=== PATIENT | male | born 1970 | race Caucasian/White ===

== ENCOUNTER 2023-11-09 12:31 | Emergency (ER) | payer SELFPAY ==
[2023-11-09 12:31] VITALS: BP 101/77; PULSE 77; RESP 14; TEMP 36.1; O2SAT 98; BMI 20.4
--- NOTE | 2023-11-09 13:00 | RAD_ITS ---
STUDY: X-RAY - LEFT ELBOW REASON FOR EXAM: Male, 53 years old. Left elbow pain TECHNIQUE: 3 view(s) of the elbow. COMPARISON: None. FINDINGS: Normal visualized humerus, radius and ulna. Normal radiocapitellar and ulnotrochlear articulations. The soft tissue structures are unremarkable. RAD/Elbow min 3 Views IMPRESSION: Normal x-ray examination of the elbow. Electronically Signed: Karan Gallardo MD ([place]) at 13:36 EDT ,
--- NOTE | 2023-11-09 13:00 | EX.ED.UPPERE ---
HPI History of Present Illness Chief Complaint: Upper Extremity Injury Narrative Narrative: 53-year-old male, who denies significant past medical history, [id number], presents with 2 weeks of left elbow pain. He relates history that remotely he had a dog bite to his left hand. His hand had been swollen for quite some time, but he took antibiotics, and it resolved. He states that there are times when he has pain in his left elbow and it feels like someone took their knee against it, and broke it. He denies any recent trauma, no fevers or chills, no redness to the area. At times it radiates down his forearm as well. He states he went back to the [facility] clinic and was told that he needed to come to the emergency department to get an MRI of his left elbow. Pain is sometimes worse with movement. No distinctive exacerbating or alleviating factors. PFSH PFS Medical History no medical history Home Medications ?Medication ?Instructions ?Recorded ?Last Taken ?Type clindamycin HCl 300 mg capsule 300 mg PO Q6H ##80 06/13/14 Unknown Rx (Cleocin HCl) Allergy/AdvReac Type Severity Reaction Status Date / Time No Known Allergies Allergy Verified 11/09/23 12:33 Family History no significant family his Surgical History no surgical history Social History Smoking Status: Current every day smoker tobacco type: cigarettes ROS ROS ED ROS Narrative Constitutional: No fever, no chills. HEENT: No sore throat. No neck pain. No loss of vision. No rhinorrhea. Cardiovascular: No chest pain. No palpitations. No pedal edema. Respiratory: No cough, no shortness of breath. Abdominal: No abdominal pain. No nausea. No vomiting. Genitourinary: No dysuria. No hematuria. Musculoskeletal: No myalgias. Positive left elbow pain. Neurologic: No headaches. No dizziness. No lightheadedness. Skin: No rash. No change in color. Psychiatric: No depression. No anxiety. EXAM Physical Exam Narrative Exam Narrative: Afebrile. Vital signs noted. Regular rate and rhythm. Lungs clear to auscultation bilaterally. Abdomen soft nontender with normoactive bowel sounds. Neurological examination shows him awake, alert, and oriented. Inspection of the left elbow reveals no evidence of acute swelling, no olecranon tenderness or swelling. Palpable radial pulse, left. Able to oppose thumb, good capillary refill fingers. Full range of motion of left wrist. Mild tenderness to palpation along radial nerve at the elbow. Const Vital Signs: 11/09/23 12:31 Temperature 96.9 F L Temperature Source Temporal Pulse Rate 77 Respiratory Rate 14 Blood Pressure 101/77 Blood Pressure Mean 85 Pulse Ox 98 Oxygen Delivery Method Room Air MDM MDM MDM Narrative Medical decision making narrative: In the differential diagnosis is radial nerve entrapment versus tendinitis versus peripheral nerve neuropathy. X-rays will be obtained to rule out fracture or degenerative changes of the left elbow. I had a lengthy discussion with patient. I do not feel he needs an emergent MRI, and additionally it is unavailable during the weekend. I feel he can follow-up with orthopedics, and have further workup as an outpatient. X-rays interpreted by myself independently shows no evidence of acute fracture, no dislocation. I reviewed the radiology report which confirms my independent interpretation. At this point in time, I wrote him a Medrol Dosepak to take for anti-inflammatory properties. He may have more of an impingement type syndrome of the nerve in his left elbow. He was referred to orthopedics. Return instructions to the emergency department were reviewed. Disposition is discharged home in stable condition. History & Record Review Discussion w/independent historian: Patient Discharge Plan Triage Chief Complaint: Upper Extremity Injury ED Provider: Scott Bonilla Dx/Rx/DC Orders Clinical Impression: Left elbow pain Instructions: ED Arthralgia, ED Pain, Acute, Uncertain Cause Prescriptions: No Action clindamycin HCl [Cleocin HCl] 300 MG capsule 300 mg PO Q6H Qty: 80 0RF Primary Care Provider: Care Physician,No Primary Referrals: Cleveland Escobar DO [Med Staff - Active Staff] - 1 Week if not improving Care Physician,No Primary [Primary Care Provider] - Print Language: Kinyarwanda Disposition Disposition: Home, Self Care
[2023-11-09 14:02] VITALS: BP 110/78; PULSE 75; RESP 18; TEMP 37; O2SAT 97
== END 2023-11-09 14:03 | disposition home or self-care (01) ==
PROVIDERS: Emergency Provider Emergency Medicine; Visit Provider Emergency Medicine
DX: M25.522 Pain in left elbow (principal); F17.210 Nicotine dependence, cigarettes, uncomplicated
CPT/HCPCS: 73080; 99282

== ENCOUNTER 2025-02-26 09:50 | Emergency (ER) | payer OTHER, SELFPAY ==
[2025-02-26 09:50] VITALS: BP 127/77; PULSE 63; RESP 14; TEMP 36.2; O2SAT 98; BMI 21.6
[2025-02-26] MEDS: 0.9% Normal Saline (1000mL) 1,000 ML 1000 ML IV (10:31)
--- NOTE | 2025-02-26 10:35 | CT_ITS ---
PROCEDURE: CTA HEAD AND NECK W/ CONTRAST 02/26/2025 REASON FOR EXAM: RECENT HEAD INJURY, HEADACHE, RADICULOPATHY TECHNIQUE: Procedure Code: CTCTA.HDNCK Modality: CT Procedure: CTA HEAD AND NECK W/ CONTRAST Multiplanar Sagittal and Coronal images were obtained. 3D post processing was performed CONTRAST: Isovue 370 VOLUME: 100 mL One or more dose reduction techniques were used (e.g., Automated exposure control, adjustment of the mA and/or kV according to patient size, use of iterative reconstruction technique). RADIATION DOSE SUMMARY: CTDlvol: 20.5 mGy DLP: 724.57 mGycm COMPARISON: Prior CT scan of the brain done earlier in the day. FINDINGS: Aortic Arch: Normal size and branching pattern. No significant atherosclerotic plaque. Brachiocephalic and Subclavians: Unremarkable RIGHT Carotid: Right CCA: Unremarkable. Right ICA: Unremarkable. Right ECA: Unremarkable. LEFT Carotid: Left CCA: Unremarkable. Left ICA: Unremarkable. Left ECA: Unremarkable. Vertebrals: Codominant. Arise from the subclavians. Both vertebrals form the basilar. RIGHT Vertebral: Unremarkable. LEFT Vertebral: Unremarkable. Anatomy: [place] anatomy is normal. Aneurysm or avm: No intracranial aneurysms or large vascular malformations are identified. Anterior cerebral arteries: Unremarkable: Middle cerebral arteries: Unremarkable. Basilar artery: Unremarkable. Posterior cerebral arteries: Unremarkable. Other major branches of the posterior circulation: Unremarkable. Major venous structures: Unremarkable. Other findings: Neck: Lungs: Bones: CT/CTA Head AND Neck W/ Contrast IMPRESSION: Unremarkable examination. Reading Location: [place] [id number]
--- NOTE | 2025-02-26 10:35 | CT_ITS ---
PROCEDURE: BRAIN/HEAD WITHOUT CONTRAST 02/26/2025 REASON FOR EXAM: HEADACHE, CONCUSSION, RECENT INJURY TECHNIQUE: Procedure Code: CTBR Modality: CT Procedure: BRAIN/HEAD WITHOUT CONTRAST Coronal and Sagittal reconstruction series were provided. One or more dose reduction techniques were used (e.g., Automated exposure control, adjustment of the mA and/or kV according to patient size, use of iterative reconstruction technique. RADIATION DOSE SUMMARY: CTDlvol: 44.99 mGy DLP: 796.11 mGycm COMPARISON: None FINDINGS: Brain: Within normal limits for age CSF Spaces: Normal Sinuses/Mastoids: Partial opacification of the left frontal sinus. Mucosal thickening of the ethmoid sinuses. Partial opacification of the inferior aspect of the left maxillary sinus. Bones: No fracture seen. CT/Brain/Head without Contrast IMPRESSION: NORMAL NONCONTRAST HEAD CT. Sinusitis as described. Reading Location: [place] [id number]
--- NOTE | 2025-02-26 10:59 | EDS_ITS ---
HPI History of Present Illness Chief Complaint: Headache Narrative Narrative: Chief complaint and HPI: 55-year-old male presents from occupational health for evaluation of concussion and neck pain with intermittent left upper extremity radiculopathy. History taken by patient as well as outpatient ED note-patient had paperwork on him. Patient is a 55-year-old gentleman who presented to the ER on 01/14/2025 after a work-related head injury with LOC. He struck his head off of a car left. Since the incidents he has been having head pain and concussion-like symptoms as well as neck pain and periodically left upper extremity radiculopathy. He is not on blood thinners. In the ER on initial presentation he had a CT of the head without contrast as well as CT spine without contrast. CT head was unremarkable. CT of the cervical spine showed disc osteophyte complex at C3-4 with consequent mild ventral bony canal effacement and mild bilateral bony foraminal stenosis. Similar findings but slightly milder at C5 and 6. Similar findings are slightly more stenotic bilateral bony foramina at C6-7. He had an x-ray of the left shoulder that was unremarkable for traumatic injury. Patient states he was ultimately discharged home on prednisone taper with follow-up with occupational health patient was seen in occupational health today due to his continuing headaches, concussion type symptoms, neck pain, intermittent radiculopathy of the left upper extremity. Sent to the ED for further evaluation. Patient states since the incident he has been having brain fogginess, intermittent forgetfulness, headaches, left neck pain, and intermittent left upper extremity radiculopathy. States he is currently not working due to the symptoms. Review of systems: See HPI Medications: As listed on the chart Allergies: As listed on the chart PFSH: Per chart Vital signs: As listed on the chart. Reviewed. Physical exam: Gen: A&O x3, NAD Head: Normocephalic, atraumatic Eyes: No sclera icterus, conjunctiva clear, PERRL, EOMI ENT: TMs clear BL, moist mucous membranes, face atraumatic without tenderness Neck: Trachea midline, no midline spinal tenderness, no bony step-offs, mild tenderness to palpation of the paraspinal musculature of the bilateral cervical spine into the superior bilateral trapezius muscles-no external signs of trauma CV: RRR, no murmurs, no chest wall TTP Resp: Lungs CTA BL, no w/r/c Musc: Full ROM, no deformity, strength +5/5 in bilateral upper extremities except for him specialist strength is +4 on the left-patient is right handed, radial pulse +2, good capillary refill the bilateral upper extremities, sensation intact, no midline spinal TTP, no reta step-offs Skin: Warm, dry Neuro: Alert, oriented, grossly intact, sensation intact in bilateral upper extremity Psych: Cooperative, appropriate mood and affect PFSH [facility] Medical History (Updated 02/26/25 @ 12:[address] Melchor Salgado, DO) Concussion Home Medications Medication Instructions Recorded Last Taken Type clindamycin HCl 300 mg capsule 300 mg PO Q6H ##80 03/0 04/29 Unknown Rx (Cleocin HCl) methylprednisolone 4 mg tablets in See Rx Instructions PO .COMPLEX 11/09/23 Unknown Rx a dose pack (Medrol (Pavel)) #21 tabs Allergy/AdvReac Type Severity Reaction Status Date / Time No Known Allergies Allergy Verified 02/26/25 09:52 Family History no significant family his Social History (Updated 02/26/25 @ 10:12 by Kajal Doshi) current occupational status: employed Smoking Status: Current every day smoker tobacco type: cigarettes EXAM Physical Exam Const Vital Signs: 02/26/25 09:50 02/26/25 12:15 Temperature 97.1 F L 97.1 F L Temperature Source Temporal Pulse Rate 63 69 Respiratory Rate 14 14 Blood Pressure 127/77 H 124/92 H Blood Pressure Mean 93 102 Pulse Ox 98 98 Oxygen Delivery Method Room Air MDM MDM MDM Narrative Medical decision making narrative: 55-year-old male presents from occupational health for evaluation of concussion and neck pain with intermittent left upper extremity radiculopathy. History taken by patient as well as outpatient ED note-patient had paperwork on him. Patient is a 55-year-old gentleman who presented to the ER on 01/14/2025 after a work-related head injury with LOC. He struck his head off of a car left. Since the incidents he has been having head pain and concussion-like symptoms as well as neck pain and periodically left upper extremity radiculopathy. He is not on blood thinners. In the ER on initial presentation he had a CT of the head without contrast as well as CT spine without contrast. CT head was unremarkable . CT of the cervical spine showed disc osteophyte complex at C3-4 with consequent mild ventral bony canal effacement and mild bilateral bony foraminal stenosis. Similar findings but slightly milder at C5 and 6. Similar findings are slightly more stenotic bilateral bony foramina at C6-7. He had an x-ray of the left shoulder that was unremarkable for traumatic injury. Patient states he was ultimately discharged home on prednisone taper with follow-up with occupational health patient was seen in occupational health today due to his continuing headaches, concussion type symptoms, neck pain, intermittent radiculopathy of the left upper extremity. Sent to the ED for further evaluation. I called occupational health and spoke with Kristine Palma who sent the patient to the emergency department. I did tell her that I recommend an MRI but that this does not need to happen emergently in the emergency department. She confirmed understanding. She would like me to repeat CT head and neck to make sure there is no changes. I do think this is appropriate. Will assess for vascular injury such as dissection in the neck due to the injury given his symptoms. CT head, CTA head and neck ordered. Differential diagnosis includes but is not limited to concussion, cervical radiculopathy, fracture, suspect less likely intracranial bleed, vascular injury/dissection. BMP will be obtained for contrast. Will give fluids given contrast load. BMP unremarkable.CT head without any acute traumatic injury. Sinusitis however this is not correlate clinically or via HPI. CTA head and neck shows mild degree of degenerative changes otherwise no acute traumatic injury. No vascular abnormality. At this point in time, I suspect patient's symptoms are secondary to concussion as well as cervical radiculopathy. He will likely need outpatient MRI which occupational health was updated on. Patient states he is currently not working due to leave. I told him that I do not recommend him returning back to work until symptoms have improved or resolved. I told him not to drive until symptoms have resolved or improved. He confirmed understand the plan. Follows up with Worker's Compensation. Impression: 1. Concussion 2. Cervical radiculopathy 3. Recent head injury at work Lab Data Labs: Laboratory Results - last 24 hr 02/26/25 10:30 Sodium 139 Potassium 4.3 Chloride 103 Carbon Dioxide 27.6 Anion Gap 8 BUN 13 Creatinine 0.90 Estim Creat Clear Calc 92.61 Est GFR (MDRD) Non-Af 100 BUN/Creatinine Ratio 14.9 Glucose 95 Calcium 9.2 Radiography Diagnostic Testing: Clinical Impression(s) from Imaging Studies Brain CT 02/26/25 10:35 IMPRESSION: NORMAL NONCONTRAST HEAD CT. Sinusitis as described. Reading Location: [facility]- Head/Neck CTA 02/26/25 10:35 IMPRESSION: Unremarkable examination. Reading Location: [facility]- Discharge Plan Triage Chief Complaint: Headache ED Provider: Melchor Salgado Dx/Rx/DC Orders Clinical Impression: Concussion, Cervical radiculopathy Instructions: Coping with Concussion, Concussion Dc, Cervical Radiculopathy Prescriptions: No Action clindamycin HCl [Cleocin HCl] 300 MG capsule 300 mg PO Q6H Qty: 80 0RF methylprednisolone [Medrol (Pavel)] 4 mg tablets,dose pack See Rx Instructions .ROUTE .COMPLEX Qty: 21 0RF Rx Instructions: orally per package directions Primary Care Provider: Care Physician,No Primary Referrals: Follow-up with occupational health [Other] - 3-5 Days Activity Restrictions/Additional Instructions: Your imaging showed no acute traumatic injury. Recommend MRI outpatient which I told occupational health. You need to follow-up with them. Do not return back to work until symptoms have improved/resolved. I know currently they have you on leave. Do not drive until symptoms have improved/resolved. Print Language: Vietnamese Disposition Disposition: Home, Self Care Discharge Date/Time: 02/26/25 12:16
[2025-02-26 11:18] LABS: Anion Gap 8 (5-15); BUN 13 mg/dL (4-19); BUN/Creat Ratio 14.9 RATIO (10-20); Calcium,Total 9.2 mg/dL (7.6-11.0); Carbon Dioxide 27.6 mmol/L (21.0-32.0); Chloride 103 mmol/L (98-108); Estimated Creatinine Clearance 92.61 ml/min (50-250); Glucose 95 mg/dL (70-99); Potassium 4.3 mmol/L (3.3-5.1)
[2025-02-26 12:15] VITALS: BP 124/92; PULSE 69; RESP 14; TEMP 36.2; O2SAT 98
== END 2025-02-26 12:16 | disposition home or self-care (01) ==
PROVIDERS: Emergency Provider Surgery; Visit Provider Surgery
DX: S06.0X0A Concussion without loss of consciousness, initial encounter (principal); F17.210 Nicotine dependence, cigarettes, uncomplicated; M54.12 Radiculopathy, cervical region; R51.9 Headache, unspecified; W22.09XA Striking against other stationary object, initial encounter; Y92.89 Other specified places as the place of occurrence of the external cause
CPT/HCPCS: 70450; 70496; 70498; 80048; 96360; 96361; 99283; Q9967; A4216